=== PATIENT | male | born 1990 | race Caucasian/White ===

== ENCOUNTER 2022-10-17 00:28 | Emergency (ER) | payer SELFPAY ==
--- NOTE | 2022-10-17 00:30 | DI.RAD_ITS ---
Exam(s) XR PORTABLE CHEST AP EXAM: XR PORTABLE CHEST AP CLINICAL HISTORY: cough, sob, r/o pneumonia TECHNIQUE: 2D digital imaging was performed of the chest. One image was obtained. An AP view was ob tained. COMPARISON: No exams were available for comparison FINDINGS: MEDIASTINUM: Normal. HEART: Normal. PULMONARY VASCULATURE: Normal. LUNGS: Clear. PLEURAL SPACE: No pleural effusion or pneumothorax. BONE:Within normal limits for the patient's age. OTHER FINDINGS:Normal. IMPRESSION: No acute pulmonary findings. DATA REPOSITORY: RADIATION DOSE DELIVERED:
[2022-10-17 00:33] VITALS: BP 161/89; PULSE 107; RESP 16; TEMP 37.3; O2SAT 95
--- NOTE | 2022-10-17 00:44 | W.ED.GENAD ---
Discharge Plan Disposition Patient Disposition: Home Condition: Improving Discharge Details Clinical Impression: Bronchitis, Pharyngitis, Asthma exacerbation Primary Care Provider: Lali,Local ED Provider: Joby Madrid Home Meds and New Rx's Prescriptions: New amoxicillin-pot clavulanate 875-125 mg tablet 1 tab PO BID Qty: 20 0RF prednisone 50 mg tablet 50 mg PO DAILY Qty: 5 0RF Discharge Instructions Instructions: Acute Bronchitis (ED) Additional Instructions: At this time your COVID, flu, and RSV testing is negative. Additionally your strep testing is negative however your physical exam still concerns me for strep throat. Please take Tylenol and Motrin for sore throat. Take [id number] 10 mg of loratadine every 24 hours to help with congestion and runny nose. Additionally you do have a mild asthma exacerbation which is worsened by smoking. Please use the inhaler, 2 puffs every 6 hours for the next 3 to 4 days to help with your lungs. Please also take the prednisone as prescribed to help reduce the inflammation in your lungs. Additionally if you do not notice any improvement for your sore throat for the next 24 hours on its own, please take the antibiotic Augmentin as directed. If you notice any worsening of your symptoms, or any new symptoms such as vomiting, diarrhea, fever, chills, shortness of breath, chest pain, numbness, weakness, or fainting , please return immediately to the emergency department for reevaluation. Please follow up with your primary care provider as soon as possible for reassessment and reevaluation. As always, it was a pleasure participating in your medical care today. Medical Decision Making 32-year-old male with a past medical history of regular tobacco abuse, no other significant past medical history presents today for evaluation of cough, shortness of breath, fever. Patient just drove here from [place] and arrived this evening. Patient states that about 3 to 4 weeks ago he had developed similar symptoms, he who had a left tympanic membrane rupture, and was treated initially with Augmentin, and then doxycycline for upper respiratory infections. This resolved his symptoms, however about 3 to 4 days ago the symptoms returned. He admits to congestion, runny nose, sore throat, and cough. He continues to smoke. He did take a nebulizer at home his mother's home this evening and this did help improve his shortness of breath. 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 No other complaints at this time. He denies any hemoptysis. His cough is productive with some clear whitish sputum. He denies difficulty swallowing or drinking. He has been taking DayQuil/NyQuil which has not significantly improved his symptoms. Exam demonstrates tympanic membranes that are petersen and pearly, old eschar from prior rupture noticed on left tympanic membrane. Bilateral cervical lymphadenopathy, mild tonsillar enlargement worse on the right than the left. No evidence peritonsillar abscess. Concern for strep. Lungs demonstrate wheezes but no rhonchi or rales. Differential includes asthma, viral upper respiratory infection, COVID-19, strep throat. Pneumonia is also on the differential but less likely. We will get an x-ray, breathing treatment, test for COVID flu and RSV and strep, monitor closely and reassess. 2 AM COVID flu and RSV test negative, chest x-ray negative for acute process, strep test negative, however clinically the patient's tonsils certainly are concerning for strep. Symptoms at appear clinically consistent with acute asthma exacerbation, bronchitis, likely viral respiratory infection. That being said I am still concerned with the posterior pharynx, and we will give a prescription for Augmentin as we are pending cultures for the strep. We will give a burst of steroid with a 5-day course, recommend loratadine daily, and give him albuterol inhaler for home use. Patient otherwise stable for discharge. Discussed red flags for which to return. I have extensively reviewed the treatment plan and discharge instructions with the patient. I have addressed all patient concerns at this time. The patient was made aware of what symptoms to monitor for that would warrant a return to the emergency department. Discussed the plan with the patient, they demonstrate verbal understanding and agreement with our assessment and plan at this time. The documentation in this chart was dictated using [employer] dictation software. Please excuse any dictation errors. FINDINGS: Lungs: Lungs are adequately inflated and symmetric. No focal consolidation or pulmonary edema. Pleural spaces: No visible pleural effusion. No pneumothorax. Heart/Mediastinum: Cardiomediastinal contours within normal limits. Bones/joints: No acute osseous finding. IMPRESSION: No acute findings. Thank you for allowing us to participate in the care of your patient. Dictated and Authenticated by: Lyle Wu MD 10/17/2022 1:46 AM Eastern Time ([place] & [place]) HPI General Date/Time Provider Initiated Documentation: 10/17/22 00:36. HPI Narrative: 32-year-old male with a past medical history of regular tobacco abuse, no other significant past medical history presents today for evaluation of cough, shortness of breath, fever. Patient just drove here from [place] and arrived this evening. Patient states that about 3 to 4 weeks ago he had developed similar symptoms, he who had a left tympanic membrane rupture, and was treated initially with Augmentin, and then doxycycline for upper respiratory infections. This resolved his symptoms, however about 3 to 4 days ago the symptoms returned. He admits to congestion, runny nose, sore throat, and cough. He continues to smoke. He did take a nebulizer at home his mother's home this evening and this did help improve his shortness of breath. 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 No other complaints at this time. He denies any hemoptysis. His cough is productive with some clear whitish sputum. He denies difficulty swallowing or drinking. He has been taking DayQuil/NyQuil which has not significantly improved his symptoms. Related Data Home Medications Medication Instructions Recorded Confirmed amoxicillin 875 mg-potassium 1 tab PO BID #20 tabs 10/17/22 clavulanate 125 mg tablet prednisone 50 mg tablet 50 mg PO DAILY #5 tabs 10/17/22 Previous Rx's Medication Instructions Recorded amoxicillin 875 mg-potassium 1 tab PO BID #20 tabs 10/17/22 clavulanate 125 mg tablet prednisone 50 mg tablet 50 mg PO DAILY #5 tabs 10/17/22 General Stated Complaint: RespSymp KOKO: 3 Review of Systems All systems reviewed & are unremarkable except as noted in HPI and below PFSH All Active Problems (Updated 10/17/22 @ 01:44 by Joby Madrid DO) Bronchitis (Acute) Pharyngitis (Acute) Asthma exacerbation (Acute) Social History Smoking/Tobacco Use Status: Current every day Tobacco Type: cigarettes Smoking risk assessment performed?: Yes Do you feel safe at home: Yes Do you feel safe in your relationship?: Yes Exam Narrative Exam Narrative: 1.Const: Well-nourished, Well-developed, appearing stated age 2.Eyes: PERRL, no conjunctival injection, and symmetrical lids. 3.ENT: Atraumatic external nose and ears. Moist MM. Neck: Symmetric, trachea midline, No thyromegaly. Patient's left tympanic membrane shows an old scab from prior rupture, but no effusion otherwise. No current rupture now. Right tympanic membrane is petersen and pearly. Bilateral mild lymphadenopathy. Tonsils are mildly enlarged, exudate noted on the right tonsil. No nuchal rigidity or neck stiffness. 4.CVS: +S1/S2, No murmurs or gallops. Peripheral pulses 2+ and equal in all extremities. Brisk capillary refill in all extremities. 5.RESP: Unlabored respiratory effort. Mild wheezes throughout. No rhonchi or rales. 6.GI: Soft, Nontender/Nondistended, No hepatosplenomegaly. No guarding or rebound. 7.MSK: Normocephalic/Atraumatic, Extremities w/o deformity or ttp No cyanosis or clubbing, Normal movement of all extremities 8.Skin: Warm, Dry. No rashes or lesions. 9.Neuro: surgical specialist II-XII grossly intact. Sensation grossly intact, no focal neurologic deficits. 10.Psych: (AAO) x3. Appropriate mood and affect Course Vital Signs Vital signs: Vital Signs Temperature 37.3 C 10/17/22 00:33 Pulse 107 H 10/17/22 00:33 Respiratory Rate 16 10/17/22 00:33 Blood Pressure 161/89 H 10/17/22 00:33 Pulse Oximetry 95 10/17/22 00:33 Temperature 37.3 C 10/17/22 00:33 Pulse 107 H 10/17/22 00:33 Respiratory Rate 16 10/17/22 00:33 Blood Pressure 161/89 H 10/17/22 00:33 Pulse Oximetry 95 10/17/22 00:33 Oxygen Delivery Method Room Air 10/17/22 00:33 Oxygen Flow Rate 0 10/17/22 00:33 Pain Level 3 10/17/22 00:33
[2022-10-17] MEDS: Albuterol/Ipratropium 3 ML UPD VIAL UPD (00:52)
[2022-10-17] MEDS: Albuterol HFA 8 GM 60 PUFF INH IH (01:31)
[2022-10-17] MEDS: predniSONE 20 MG TAB 60 MG PO (01:32)
[2022-10-17] MEDS: Loratidine 10 MG TAB PO (01:32)
[2022-10-17] MEDS: Inhaler, Assist Device 1 EACH MC (01:34)
[2022-10-17 01:35] LABS: COVID-19 PCR Negative (Negative); Influenza A PCR Negative (Negative); Influenza B PCR Negative (Negative); RSV PCR Negative (Negative)
[2022-10-17 01:36] LABS: Source Nasopharynx
--- NOTE | 2022-10-17 01:46 | DI.VRAD_ITS ---
PROCEDURE INFORMATION: Exam: XR Chest Exam date and time: 10/17/2022 12:51 AM Age: 32 years old Clinical indication: Cough and shortness of breath; Additional info: Cough, SOB, R/O pneumonia TECHNIQUE: Imaging protocol: Radiologic exam of the chest. Views: 1 view. COMPARISON: No relevant prior studies available. FINDINGS: Lungs: Lungs are adequately inflated and symmetric. No focal consolidation or pulmonary edema. Pleural spaces: No visible pleural effusion. No pneumothorax. Heart/Mediastinum: Cardiomediastinal contours within normal limits. Bones/joints: No acute osseous finding. IMPRESSION: No acute findings. Dictated and Authenticated by: Lyle Wu MD. Ordering:RON Hemphill MD
[2022-10-17 01:53] VITALS: BP 137/70; PULSE 72; RESP 16; TEMP 37.3; O2SAT 98
== END 2022-10-17 01:54 | disposition home or self-care (01) ==
LOC: ER 02:02
PROVIDERS: Emergency Provider Student in an Organized Health Care Education/Training Program
DX: J02.9 Acute pharyngitis, unspecified (principal); R05.9 Cough, unspecified; R06.02 Shortness of breath; J40 Bronchitis, not specified as acute or chronic; Z20.822 Contact with and (suspected) exposure to COVID-19; F17.200 Nicotine dependence, unspecified, uncomplicated
CPT/HCPCS: 87637; 94640; 99284; 71045; 87081; J7512; J7620

== ENCOUNTER 2025-01-23 20:46 | Emergency (ER) | payer SELFPAY ==
[2025-01-23 21:00] VITALS: BP 136/81; PULSE 65; RESP 20; TEMP 36.9; O2SAT 96
[2025-01-23 21:02] VITALS: BP 136/81; PULSE 65; RESP 20; TEMP 36.9; O2SAT 96
[2025-01-23 21:40] LABS: Abs Immature Grans 0.02 10^3/uL (0.0-0.06); HCT 42.8 % (40.0-50.0); HGB 14.8 g/dL (13.5-17.5); Immature Grans % 0.3 %; MCH 30.2 pg (27.0-33.0); MCHC 34.6 % (32.0-36.0); MCV 87 fL (80-95); MPV 10.5 fL (8.0-11.0); Platelet Count 238 10^3/uL (130-400); RBC 4.90 10^6/uL (4.36-5.78); RDW 11.8 % (11.8-14.1); RDW-SD 38.1 fL; WBC 7.44 10^3/uL (4.4-10.8)
[2025-01-23 22:03] LABS: ALT 31 U/L (16-63); AST 13 U/L (15-37); Albumin 4.3 g/dL (3.4-5.0); Alkaline Phosphatase 74 U/L (46-116); Anion Gap 7.5 mmol/L (3-11); BUN 8 mg/dL (7-18); Bilirubin, Total 0.6 mg/dL (0.2-1.0); CO2 30.5 mmol/L (21.0-32.0); Calcium 9.6 mg/dL (8.5-10.1); Chloride 104 mmol/L (98-107); Estimated GFR 101.92 (mL/min/1.73m2); Glucose 106 mg/dL (74-106); Potassium 3.8 mmol/L (3.5-5.1); Sodium 142 mmol/L (136-145); Total Protein 7.4 g/dL (6.4-8.2)
--- NOTE | 2025-01-23 22:15 | DI.CT_ITS ---
Exam(s) CT HEAD WO EXAM: CT HEAD WO CLINICAL HISTORY: headache with dental abscess. TECHNIQUE: Imaging Protocol: Axial computed tomography images with coronal and sagittal reformatted images were created and reviewed COMPARISON: No exams were available for comparison FINDINGS: There are no skull fractures. There is mucosal thickening in the right maxillary sinus well as small amount of fluid therein. Partially visualized left maxillary sinus is clear. Sphenoid sinuses exhibits some posterior mucosal thickening. Frontal sinuses are not developed. Mild mucosal thickening is noted in ethmoidal air cells bilaterally There is no evidence of intracranial hemorrhage, mass effect, or shift of midline structures. There are no extra-axial fluid collections. The ventricles are not enlarged or shifted and there is no blood within the ventricular system nor within the basal cisterns. IMPRESSION: No acute intracranial findings on this noninfused CT scan of the brain. Paranasal sinus findings as described above. Preliminary virtual Radiology report was reviewed. RADIATION DOSE DELIVERED: 892.15mGy.cm Total DLP DATA REPOSITORY: All CT scans at this facility are submitted to the National Radiology Data Registry (NRDR) Dose Index Registry (DIR) with the [employer] (ACR). RADIATION OPTIMIZATION: All CT scans at this facility use at least one of these dose optimization techniques: automated exposure control; mA and/or kV adjustment per patient size (includes targeted exams where dose is matched to clinical indication); or iterative reconstruction.
--- NOTE | 2025-01-23 22:15 | DI.CT_ITS ---
Exam(s) CT FACIAL W EXAM: CT FACIAL W CLINICAL HISTORY: dental pain right with headache. TECHNIQUE: Imaging Protocol: Axial computed tomography images with coronal and sagittal reformatted images were created and reviewed. IV contrast injected was Omnipaque 350-100 ml COMPARISON: CT CT HEAD WO from 01/23/2025 FINDINGS: MAXILLOFACIAL CT SCAN: There is no evidence of facial nor orbital blowout fracture. There is mucosal thickening and some fluid noted in the right maxillary sinus. Left maxillary sinus exhibits some milder mucosal thickening. Left sphenoid sinus exhibits some posterior mucosal thickening. Frontal sinuses are not developed. There is evidence of recent extraction of a right side anterior maxillary molar tooth. There is periapical lucency around the root of the adjacent right middle maxillary molar.. Suggest periapical abscess.. The most posterior molar on the right side appears unremarkable. There is no obvious ring-enhancing tissue abscess. IMPRESSION: Recent extraction of anterior right maxillary molar. Periapical lucency is seen around the roots of the adjacent right middle maxillary molar are suggestive of periapical abscess. Prominent mucosal thickening in the right maxillary sinus as well as small amount of fluid therein. Possibly related to dental findings. Preliminary virtual Radiology report was reviewed RADIATION DOSE DELIVERED: 707.56mGy.cm Total DLP DATA REPOSITORY: All CT scans at this facility are submitted to the National Radiology Data Registry (NRDR) Dose Index Registry (DIR) with the [employer] (ACR). RADIATION OPTIMIZATION: All CT scans at this facility use at least one of these dose optimization techniques: automated exposure control; mA and/or kV adjustment per patient size (includes targeted exams where dose is matched to clinical indication); or iterative reconstruction.
--- NOTE | 2025-01-23 22:23 | W.ED.GENAD ---
Discharge Plan Disposition Patient Disposition: Home Condition: Stable Discharge Details Clinical Impression: Dental abscess, Headache Primary Care Provider: None,None ED Provider: Giselle Roman Home Meds and New Rx's Prescriptions: Continued metronidazole 500 mg tablet 500 mg PO QID amoxicillin-pot clavulanate 875-125 mg tablet 1 tab PO BID Qty: 20 0RF Discharge Instructions Instructions: Dental Pain (DC) Additional Instructions: Please follow-up with dentist tomorrow Take Motrin and Tylenol for pain control Should you have fever, or with any new or worsening symptoms please present for reassessment otherwise continue your antibiotics and follow-up closely Discharge Data Discharge Date/Time-TO BE ENTERED AT DEPARTURE: 01/24/25 00:46 HPI General Date/Time Provider Initiated Documentation: 01/23/25 21:20. HPI Narrative: This 34-year-old male presents with right sided facial pain which now is in his quaker and head. He is concerned for abscess of his brain per patient. Patient states that he just had his right upper tooth extracted and now the pain is worsening. He completed course of antibiotics 2 weeks ago. He called the dentist yesterday and they prescribed him a new prescription: amoxicillin and Flagyl. States the pain is better in the right maxillary region but he is concerned because he now has headache and right sided pain to the quaker region. He denies any difficulty swallowing or shortness of breath. Related Data Home Medications ?Medication ?Instructions ?Recorded ?Confirmed amoxicillin 875 mg-potassium 1 tab PO BID #20 tabs 10/17/22 01/23/25 clavulanate 125 mg tablet metronidazole 500 mg tablet 500 mg PO QID 01/23/25 01/23/25 Previous Rx's ?Medication ?Instructions ?Recorded amoxicillin 875 mg-potassium 1 tab PO BID #20 tabs 10/17/22 clavulanate 125 mg tablet Allergies Allergy/AdvReac Type Severity Reaction Status Date / Time No Known Allergies Allergy Unverified 01/23/25 21:03 General Stated Complaint: DentalOral KOKO: 4 Exam Narrative Exam Narrative: Alert and oriented 34-year-old male presents holding the right side of his head, answering questions appropriately oropharynx patent uvula midline, recent extraction tooth #4, #5 the tenderness although no drainable abscess or purulent material noted, no soft palate induration or hard palate swelling, uvula midline, maintaining secretions tenderness, pupils are equal round reactive to light and accommodation no proptosis no significant maxillary or mandibular swelling noted, no stridor Course Vital Signs Vital signs: Vital Signs Temperature 36.9 C 01/23/25 21:00 Pulse 65 01/23/25 21:00 Respiratory Rate 20 01/23/25 21:00 Blood Pressure 136/81 01/23/25 21:00 Pulse Oximetry 96 01/23/25 21:00 Temperature 36.9 C 01/23/25 21:02 Pulse 65 01/23/25 21:02 Respiratory Rate 20 01/23/25 21:02 Blood Pressure 136/81 01/23/25 21:02 Blood Pressure Position Sitting 01/23/25 21:02 Pulse Oximetry 96 01/23/25 21:02 Oxygen Delivery Method Room Air 01/23/25 21:02 Oxygen Flow Rate 0 01/23/25 21:02 Lab/Test Results Lab/Test Results: Laboratory Tests Range/Units 01/23/25 21:30 WBC (4.4-10.8) 10^3/uL 7.44 RBC (4.36-5.78) 10^6/uL 4.90 Hgb (13.5-17.5) g/dL 14.8 Hct (40.0-50.0) % 42.8 MCV (80-95) fL 87 MCH (27.0-33.0) pg 30.2 MCHC (32.0-36.0) % 34.6 RDW (11.8-14.1) % 11.8 Plt Count (130-400) 10^3/uL 238 MPV (8.0-11.0) fL 10.5 Immature Gran % % 0.3 Neutrophils % % 67.1 Lymphocytes % % 21.2 Monocytes % % 9.5 Eosinophils % % 1.2 Basophils % % 0.7 Nucleated RBC % (0.0-0.3) % 0.0 Absolute Neutrophils (1.2-6.7) 10^3/uL 4.99 Absolute Lymphocytes (1.2-3.4) 10^3/uL 1.58 Absolute Monocytes (0.1-0.8) 10^3/uL 0.71 Absolute Eosinophils (0.0-0.7) 10^3/uL 0.09 Absolute Basophils (0.0-0.2) 10^3/uL 0.05 Sodium (136-145) mmol/L 142 Potassium (3.5-5.1) mmol/L 3.8 Chloride (98-107) mmol/L 104 Carbon Dioxide (21.0-32.0) mmol/L 30.5 Anion Gap (3-11) mmol/L 7.5 BUN (7-18) mg/dL 8 Creatinine (0.70-1.30) mg/dL 1.0 Est GFR (CKD-EPI 2020) (mL/min/1.73m2) 101.92 Glucose (74-106) mg/dL 106 Calcium (8.5-10.1) mg/dL 9.6 Total Bilirubin (0.2-1.0) mg/dL 0.6 AST (15-37) U/L 13 L ALT (16-63) U/L 31 Alkaline Phosphatase (46-116) U/L 74 Total Protein (6.4-8.2) g/dL 7.4 Albumin (3.4-5.0) g/dL 4.3 Medical Decision Making Results: CThead and maxillary per radiology interpretation my review CBC and CMP within normal limits Assessment and plan: Patient is on amoxicillin and Flagyl, he has a dentist and can follow-up tomorrow. I suspect that his CTs will be within normal limits however patient does have a headache and an abscess that was recently drained, for completeness I will order CT scans for further evaluation. Patient has a normal-appearing CT aside from evidence of infection over the area where there was a dental extraction encouraged to continue taking his antibiotic. Bactrim was not specifically there is no evidence of brain abscess which was patient's largest concern is headache and dental abscess. patient will continue taking Motrin and Tylenol at home otherwise and return earlier should he have new or worsening complaints. There is no clinical evidence of Harshad's angina on today's assessment. PFSH All Active Problems (Updated 01/23/25 @ 23:57 by SAMY Spencer) Headache (Acute) Dental abscess (Acute) Social History (System 06/03/23 @ 10:02 by Coni Toney) Smoking/Tobacco Use Status: Current every day Tobacco Type: cigarettes Smoking risk assessment performed?: Yes Do you feel safe at home: Yes Do you feel safe in your relationship?: Yes PAWSS Have you Been Recently Intoxicated or Drunk Within the Last 30 days?: No Have you Ever Experienced Previous Episodes of Alcohol Withdrawal?: No Have you ever Experienced Withdrawal Seizures?: No Have you ever Experienced Delirium Tremens(DT)s?: No Have you ever undergone Alcohol Rehabilitation Treatment (i.e, inpt ot outpatient treatment programs)?: No Have you ever Experienced Blackouts?: No Have you ever Combined Alcohol with other Downers within the last 90 days?: No Have you ever Combined Alcohol with any other Substance of Abuse during the last 90 days?: No Positive Blood Alcohol level on Presentation? [PCS.BAL]: No Evidence of Increased Autonomic Activity (i.e. HR>120, tremor, sweating, agitation, nausea)?: No Result: 0
[2025-01-23] MEDS: Normal Saline Flush 10 ML SYR IVP (23:01)
[2025-01-23] MEDS: Normal Saline - Diluent 50 ML VIAL IJ (23:01)
[2025-01-23] MEDS: Omnipaque 350 MG/ML 100 ML BTL IJ (23:01)
--- NOTE | 2025-01-24 00:22 | DI.VRAD_ITS ---
PROCEDURE INFORMATION: Exam: CT Head Without Contrast Exam date and time: 01/23/2025 10:54 PM Age: 34 years old Clinical indication: Pain; Headache; Prior surgery; Surgery date: <1 month; Surgery type: Tooth pulled x 2 weeks ago; Additional info: Headache with dental abscess TECHNIQUE: Imaging protocol: Computed tomography of the head without contrast. COMPARISON: No relevant prior studies available. FINDINGS: Brain: No acute intracranial hemorrhage, mass-effect, midline shift, or extra-axial collection is seen. The petersen white matter differentiation appears preserved. Cerebral ventricles: The ventricular system and basilar cisterns appear appropriate in size and configuration. Paranasal sinuses: CT imaging through the facial bones was obtained concurrently and has been dictated separately. Mastoid air cells: The mastoid air cells appear well-aerated. Auditory system: The middle ear cavities appear clear. Orbital cavities: The globes and intraorbital structures appear grossly intact. Bones: The bony calvarium appears intact. No depressed skull fracture is seen. Soft tissues: No significant scalp lesion is seen. IMPRESSION: No acute intracranial abnormality seen. Dictated and Authenticated by: Stepan Higgins MD. Orderin Jessie Desai MD
--- NOTE | 2025-01-24 00:26 | DI.VRAD_ITS ---
PROCEDURE INFORMATION: Exam: CT Maxillofacial With Contrast; Mandible Exam date and time: 01/23/2025 11:00 PM Age: 34 years old Clinical indication: Other: Dental pain right with headache; Prior surgery; Surgery date: <1 month; Surgery type: Tooth pulled x 2 weeks ago TECHNIQUE: Imaging protocol: Computed tomography maxillofacial with intravenous contrast. Exam focused on the mandible. Contrast material: OMNI 350; Contrast volume: 100 ml; Contrast route: INTRAVENOUS (IV); COMPARISON: CT HEAD WO 01/23/2025 10:54 PM FINDINGS: Paranasal sinuses: There is prominent thick mucoperiosteal thickening in the right maxillary sinus suggesting chronic sinusitis, probably a dental origin given other findings. There is mild mucoperiosteal thickening at the floor of the left maxillary sinus. Orbital cavities: The globes and intraorbital structures appear grossly intact. Bones: No acute facial fracture is seen. There is mild rightward deviation of the nasal septum. Soft tissues: Within the limits of visualization, no gross soft tissue fluid collection is seen. Teeth: There has been recent extraction of the anterior right maxillary molar. There is subtle periapical lucency surrounding the root of the adjacent posterior right maxillary bicuspid suggesting chronic apical periodontitis. There is also prominent periapical lucency surrounding the roots of the adjacent right middle maxillary molar with partial destruction of the posterior lingual root tip on image 20 of series 6 suggesting a periapical abscess. There is suggestion of a small dental cavity along the margin of dental amalgam in the crown of the middle right maxillary molar, image 28 of series 4. There is also periapical lucency surrounding the root tip of the right medial maxillary incisor. There is a small dental cavity in the lateral neck of the left anterior mandibular molar, image 27 of series 4. IMPRESSION: 1. Recent extraction of the anterior right maxillary molar. 2. Prominent periapical lucency surrounding the roots of the adjacent right middle maxillary molar with partial destruction of the posterior lingual root tip suggesting a periapical abscess. Follow up with a dentist is recommended. Additional dental findings, as above. 3. Prominent thick mucoperiosteal thickening in the right maxillary sinus suggesting chronic sinusitis, presumably of dental origin given other findings. 4. Within the limits of visualization, no frankly organized drainable soft tissue fluid collection is seen. Dictated and Authenticated by: Stepan Higgins MD. Orderin Jessie Desai MD
[2025-01-24 00:45] VITALS: BP 132/80; PULSE 60; RESP 16; O2SAT 97
== END 2025-01-24 00:46 | disposition home or self-care (01) ==
PROVIDERS: Emergency Provider Physician Assistant
DX: R68.84 Jaw pain (principal); K04.7 Periapical abscess without sinus; R51.9 Headache, unspecified
CPT/HCPCS: 99284; 99285; 36415; 80053; 70450; 70487; 85025; J3490